=== PATIENT | female | born 1965 | race Caucasian/White ===

== ENCOUNTER 2016-07-23 13:27 | Emergency (ER) | payer OTHER ==
[~2016-07-23] VITALS: Ht 165.1 cm; Wt 78.5 kg
[2016-07-23 13:28] VITALS: BP 153/90; PULSE 72; RESP 14; TEMP 97.8; O2SAT 99
[2016-07-23] MEDS ORDERED: RABIES VACCINE CHICK EMB INJ 2.5 UNITS/ML SYR IM ONE (13:45)
--- NOTE | 2016-07-23 13:45 | PD ---
HPI Chief Complaint: Medical Clearance Time Seen by Provider: 13:40 Travel History International Travel<30 days: No Contact w/Intl Traveler<30days: No Traveled to known affect area: No History of Present Illness HPI 51 year white female presents to ED requesting 2nd rabies vaccine. 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 The cat was later dx with having rabies & she then was started on rabies prophylaxis receiving rabies immunoglobulin & vaccine on 07/19/16 at her local ER in [place]. She is currently on vacation in [place]. She denies any medical complaints at this time. [facility] Social History Tobacco Use: No Allergies-Medications (Allergen,Severity, Reaction): Coded Allergies: No Known Allergies (Unverified , 07/23/16) Review of Systems Except as stated in HPI: all other systems reviewed are Neg Physical Exam Narrative GENERAL: Well appearing female. SKIN: Warm and dry. HEAD: Normocephalic. EYES: No scleral icterus. No injection or drainage. NECK: Supple, trachea midline. No JVD or lymphadenopathy. CARDIOVASCULAR: Regular rate and rhythm without murmurs, gallops, or rubs. RESPIRATORY: Breath sounds equal bilaterally. No accessory muscle use. GASTROINTESTINAL: Abdomen soft, non-tender, nondistended. MUSCULOSKELETAL: No cyanosis, or edema. BACK: Nontender without obvious deformity. No CVA tenderness. Data Data Last Documented VS Vital Signs Date Time Temp Pulse Resp B/P Pulse Ox O2 Delivery O2 Flow Rate FiO2 07/23/16 13:28 97.8 72 14 153/90 99 Orders Rabies Vaccine Chick Emb Inj (Rabavert I (07/23/16 13:45) [facility] Medical Decision Making Medical Screen Exam Complete: Yes Emergency Medical Condition: Yes Medical Record Reviewed: Yes Differential Diagnosis rabies exposure Narrative Course 51 year old female presents to ED after rabies exposure on 07/13/16 needing 2nd rabies vaccine. She reports no medical complaints & has plans for obtaining the rest if the series as scheduled when she returns fto [place]. Diagnosis Primary Impression: Rabies exposure Disposition: 01 DISCHARGE HOME Condition: Stable Grecia Florian July 23, 2016 13:45 Grecia Florian July 23, 2016 13:45
== END 2016-07-23 14:05 | disposition home or self-care (01) ==
LOC: NEPD 13:27
DX: Z20.3 Contact with and (suspected) exposure to rabies (principal); Z23 Encounter for immunization; W55.03XA Scratched by cat, initial encounter; Y93.K9 Activity, other involving animal care; Y92.531 Health care provider office as the place of occurrence of the external cause; Y99.0 Civilian activity done for income or pay
CPT/HCPCS: 90471; 90675